=== PATIENT | male | born 1950 | race Caucasian/White ===

== ENCOUNTER 2025-03-10 17:54 | Emergency (ER) | payer MEDICARE, MEDICAID, SELFPAY ==
--- NOTE | ~2025-03-10 | CT_ITS ---
History: Fall PROCEDURE: CT cervical spine without intravenous contrast. COMPARISON: None TECHNIQUE: Multiple contiguous axial images of the cervical spine were performed without the administration of i ntravenous contrast. DLP: 546 mGy-cm FINDINGS: Straightening of the normal curvature of the cervical spine. Degenerative disease is identified with osteophyte formation, disc space narrowing, endplate changes and facet arthropathy. This is most prominent at the level of C6/C7. No acute fractures are present. Severe panlobular emphysematous disease with biapical scarring and subpleural bleb formation. Impression: Severe degenerative disease, without acute fracture. Reviewed, dictated and finalized at location A. Impression: Severe degenerative disease, without acute fracture.
--- NOTE | ~2025-03-10 | CT_ITS ---
History: Vertigo PROCEDURE: CT head without contrast. COMPARISON: None TECHNIQUE: Axial imaging of the head performed from the skull base to the vertex without IV contrast. Sagittal a nd coronal reformations obtained. DLP: 681 mGy-cm FINDINGS: The ventricles are enlarged. The dilatation of the ventricles is proportional to the degree of sulcal prominence, not uncommon in the senescent brain. There is no mass, mass effect or midline shift. There is no abnormal extra-axial fluid collection or intracranial hemorrhage. Mucoperiosteal thickening within the bilateral ethmoid sinuses. Remaining paranasal sinuses are clear. The mastoid air cells are well aerated. No acute displaced fractures within the overlying cranium. Impression: No acute intracranial hemorrhage or suspicious mass effect. Reviewed, dictated and finalized at location A. Impression: No acute intracranial hemorrhage or suspicious mass effect.
--- NOTE | ~2025-03-10 | XR_ITS ---
HISTORY: fall COMPARISON: None TECHNIQUE: 3 views of the left elbow were performed FINDINGS: No acute fracture is identified. No elevation of the anterior or posterior fat pads are identified to suggest a supracondylar fracture . Overlying soft tissues are unremarkable. Bone mineralization is age-appropriate. IMPRESSION: No acute fracture or dislocation Reviewed, dictated and finalized at location A.
[2025-03-10 18:23] VITALS: BP 147/61; PULSE 63; RESP 16; TEMP 36.4; O2SAT 100
--- NOTE | 2025-03-10 18:29 | ED_ITS ---
HPI - Head Injury General Chief complaint: Head Injury <Vero Pizarro PA-C - Last Filed: 03/12/25 17:20> Stated complaint: Hit head after fall. No Loc. left arm pain <Vero Pizarro PA-C - Last Filed: 03/12/25 17:20> Time Seen by Provider: 03/10/25 18:29 <Vero Pizarro PA-C - Last Filed: 03/12/25 17:20> Focused HPI: This is a 74 year old male that presents to the ER after a fall today with head injury. Denies loss of consciousness. He is not on blood thinners. Also reports left elbow injury. GENERAL: Well-appearing, well-nourished, and in no acute distress. HEAD: Normocephalic, atraumatic. CHEST: Clear to auscultation. ?No respiratory distress. HEART: Regular rate and rhythm.? NEURO: ?Alert and oriented x3. Patient screened in triage and initial orders placed.? ?Additional care and disposition to be based upon?diagnostic testing and treatment. <Vero Pizarro PA-C - Last Filed: 03/12/25 17:20> History of Present Illness HPI Narrative: Agree with the HPI above <Vipul Sosa MD - Last Filed: 03/11/25 06:11> Related Data Allergies/Adverse reactions: Allergies Allergy/AdvReac Type Severity Reaction Status Date / Time No Known Allergies Allergy Verified 03/10/25 18:25 <Vero Pizarro PA-C - Last Filed: 03/12/25 17:20> Review of Systems Review of Systems: As reviewed above in HPI <Vipul Sosa MD - Last Filed: 03/11/25 06:11> Exam Narrative: GENERAL: [Well-appearing, well-nourished, and in no acute distress.] HEAD: [Normocephalic, atraumatic.] EYES: [PERRLA and EOMI.] ENT: Nares clear, no rhinorrhea or epistaxis. Mucous membranes moist. NECK: Supple. CHEST: [Clear to auscultation. No respiratory distress.] HEART: [Regular rate and rhythm]. No murmur heard. [Normal peripheral pulses.] ABDOMEN: [Soft, nondistended], [nontender], [No rigidity or guarding] EXTREMITIES: Normal range of motion. [No edema.] SKIN: Warm, dry, no rash. Skin tear to left elbow without any significant breakdown. NEURO: [No focal deficits]. Alert and oriented [x3.] PSYCH: [Normal mood and affect.] <Vipul Sosa MD - Last Filed: 03/11/25 06:11> Course Vital Signs Vital signs: Vital Signs Temperature 97.5 F L 03/10/25 18:23 Pulse Rate 63 03/10/25 18:23 Respiratory Rate 16 03/10/25 18:23 Blood Pressure 147/61 H 03/10/25 18:23 Pulse Oximetry 100 03/10/25 18:23 Temperature 97.5 F L 03/10/25 18:23 Pulse Rate 63 03/10/25 18:23 Respiratory Rate 16 03/10/25 18:23 Blood Pressure 147/61 H 03/10/25 18:23 Pulse Oximetry 100 03/10/25 18:23 <Vero Pizarro PA-C - Last Filed: 03/12/25 17:20> Vital Signs Temperature 97.5 F L 03/10/25 18:23 Pulse Rate 63 03/10/25 18:23 Respiratory Rate 16 03/10/25 18:23 Blood Pressure 147/61 H 03/10/25 18:23 Pulse Oximetry 100 03/10/25 18:23 Temperature 97.5 F L 03/10/25 18:23 Pulse Rate 63 03/10/25 18:23 Respiratory Rate 16 03/10/25 18:23 Blood Pressure 147/61 H 03/10/25 18:23 Pulse Oximetry 100 03/10/25 18:23 <Vipul Sosa MD - Last Filed: 03/11/25 06:11> MDM - Head Injury MDM Narrative Medical decision making narrative: 74-year-old male with history of dementia presenting from skilled care facility after a fall out of a dining room chair. He fell while eating dinner but did not strike his head or lose consciousness according to the patient. Per nursing report he did strike his head. Patient denies any significant injuries. He has a small superficial skin tear to his left elbow that was already bandage prior to arrival. Normal vital signs. Patient is comfort care measures only steven DNR on his signed POLST form and he states he was not sure why he was sent to the hospital. He has no neurological deficits and no signs of significant trauma. CTs were obtained in triage as well as an x-ray of the left elbow. CT of the there head and cervical spine showed no acute abnormalities. Elbow x-ray without any acute findings. Patient discharged back to nursing facility at this time. <Vipul Sosa MD - Last Filed: 03/11/25 06:11> Medical Records Attestation: I reviewed the patient's medical records. <Vipul Sosa MD - Last Filed: 03/11/25 06:11> Imaging Data Attestation: I personally reviewed and interpreted this imaging study as follows: <Vipul Sosa MD - Last Filed: 03/11/25 06:11> My impression: Impressions Head CT 03/10/25 19:13 Impression: No acute intracranial hemorrhage or suspicious mass effect. <Vipul Sosa MD - Last Filed: 03/11/25 06:11> Discharge Plan Discharge Clinical Impression: Closed head injury Qualifiers: Encounter type: initial encounter Qualified Code(s): S09.90XA - Unspecified injury of head, initial encounter Skin tear of elbow without complication Qualifiers: Encounter type: initial encounter Laterality: left Qualified Code(s): S51.012A - Laceration without foreign body of left elbow, initial encounter <Vero Pizarro PA-C - Last Filed: 03/12/25 17:20> Patient Disposition: NH Assisted/Asst Living <Vero Pizarro PA-C - Last Filed: 03/12/25 17:20> Condition: Stable <Vero Pizarro PA-C - Last Filed: 03/12/25 17:20> Instructions: Antibiotic Form <ROXY Munoz Last Filed: 03/12/25 17:20> Patient Language: [place] <Vero Pizarro PA-C - Last Filed: 03/12/25 17:20> Follow-up/Referrals: Halima,MD Alexis [Primary Care Provider] - <Vero Pizarro PA-C - Last Filed: 03/12/25 17:20> Stand Alone Forms: Long Term Discharge <Vero Pizarro PA-C - Last Filed: 03/12/25 17:20> Time of Disposition: 21:31 <Vero Pizarro PA-C - Last Filed: 03/12/25 17:20> 21:31 <Vipul Sosa MD - Last Filed: 03/11/25 06:11>
== END 2025-03-10 21:44 ==
PROVIDERS: Emergency Provider Student in an Organized Health Care Education/Training Program; PCP Internal Medicine
DX: S09.90XA Unspecified injury of head, initial encounter (principal); S51.012A Laceration without foreign body of left elbow, initial encounter; F03.90 Unspecified dementia, unspecified severity, without behavioral disturbance, psychotic disturbance, mood disturbance, and anxiety; W19.XXXA Unspecified fall, initial encounter
CPT/HCPCS: 70450; 72125; 73080; 99284